=== PATIENT | male | born 1960 | race Caucasian/White ===

== ENCOUNTER → 2022-05-27 08:00 | Outpatient (CLI) | payer OTHER, SELFPAY ==
--- NOTE | 2022-05-27 | DI.RAD.S_ITS ---
PROCEDURE: FL UPPER GI SERIES INDICATIONS: Gastro-esophageal reflux disease w/o esophagitis COMPARISON: [facility], CR, CHEST 2 VIEW, 07/24/2013, 15:13. FINDINGS: KUB: Preprocedural medical coding specialist film demonstrates a normal bowel gas pattern. No suspicious abdominal calcifications. Visualized solid organ contours appear normal. Bony structures appear unremarkable. Esophagus: Esophageal mucosa is normal on air-contrast views. On single-contrast views, there is normal esophageal peristalsis. No strictures, extrinsic mass effects, or diverticula. No hiatal hernia or elicited gastroesophageal reflux. There is normal transit of a calibrated barium tablet through the esophagus. Stomach: The stomach is normally distensible, with normal rugal fold thickness. No mucosal masses or ulcers. Pylorus and duodenal bulb appear normal in morphology. Duodenal folds are normal in thickness as well. IMPRESSION: No gastroesophageal reflux demonstrated with provocative maneuvers. No stricture or hiatal hernia. Dictated by: Fredi Adair M.D. on 05/27/2022 at 9:45 Approved by: Fredi Adair M.D. on 05/27/2022 at 9:46
== END ==
PROVIDERS: PCP Family Medicine; Referring Provider Family Medicine; Visit Provider Family Medicine
DX: K21.9 Gastro-esophageal reflux disease without esophagitis (principal)
CPT/HCPCS: 74240

== ENCOUNTER 2022-06-24 07:22 | Day surgery (SDC) | payer OTHER, SELFPAY ==
[2022-06-24] VITALS (7 sets, daily range): BP systolic 107–137; BP diastolic 45–86; PULSE 48–63; RESP 10–20; TEMP 36.5–37.1; O2SAT 94–98; BMI 34.0
--- NOTE | 2022-06-24 | PATH_ITS ---
[facility] Accession Number: [id number] No. of containers..06 Tissue . 01 Material submitted: . PART A: gastrointestinal site - GASTRIC BODY BIOPSY PART B: duodenum - DUODENUM BIOPSY PART C: pylorus - PYLORUS PART D: esophagus, E-G Junction - GE JUNCTION BIOPSY PART E: colon - DESCENDING COLON POLYP PART F: rectum - RECTAL POLYP . 01 Clinical history: . C: R/O H. PYLORI . 01 Diagnosis: A. Gastric Body, Biopsy: Gastric body mucosa with no diagnostic abnormality. No evidence of Helicobacter organisms on H/E stain. Negative for intestinal metaplasia. Negative for dysplasia or malignancy. . B. Duodenum, Biopsy: Small bowel mucosa with no diagnostic abnormality. Negative for active inflammation, features of sprue, dysplasia, or malignancy. . C. Gastric Pylorus, Biopsy: Gastric antral mucosa with no diagnostic abnormality. No evidence of Helicobacter organisms on H/E stain. Negative for intestinal metaplasia. Negative for dysplasia or malignancy. . D. Gastroesophageal Junction, Biopsy: Squamous mucosa with mild reactive features of reflux esophagitis. No glandular mucosa present for evaluation. Intraepithelial eosinophils are not increased. Negative for dysplasia or malignancy. . E. Descending Colon Polyp: Colonic mucosa with focal mucosal hyperplasia. Negative for dysplasia or malignancy. . F. Rectal Polyp: Hyperplastic polyp. [facility] 06/29/2022 1822 Local . 01 Electronically signed: . Vaughn Beckford MD, PhD, Pathologist NPI- [id number] . 01 Gross description: . Part A: GASTRIC BODY BIOPSY: Received in formalin are 2 fragment(s) of petty, soft tissue measuring 0.3 x 0.1 x 0.1 cm to 0.2 x 0.1 x 0.1 cm submitted entirely in 1 cassette(s) Part B: DUODENUM BIOPSY: Received in formalin is 1 fragment(s) of petty, soft tissue measuring 0.2 x 0.2 x 0.1 cm submitted entirely in 1 cassette(s) Part C: PYLORUS: Received in formalin are 2 fragment(s) of petty, soft tissue measuring 0.2 x 0.2 x 0.1 cm to 0.2 x 0.2 x 0.1 cm submitted entirely in 1 cassette(s) Part D: GE JUNCTION BIOPSY: Received in formalin is 1 fragment(s) of petty, soft tissue measuring 0.3 x 0.2 x 0.2 cm submitted entirely in 1 cassette(s) Part E: DESCENDING COLON POLYP: Received in formalin are 2 fragment(s) of petty, soft tissue measuring 0.3 x 0.2 x 0.1 cm to 0.2 x 0.2 x 0.1 cm submitted entirely in 1 cassette(s) Part F: RECTAL POLYP: Received in formalin is 1 fragment(s) of petty, soft tissue measuring 0.2 x 0.1 x 0.1 cm submitted entirely in 1 cassette(s) /CPE 06/25/2022 1120 Local . 01 Pathologist provided ICD-10: R10.13, K21.9, K63.5, K62.1 . 01 CPT . 676301, 204473, 372682, 482555, 589948, 111394 Specimen Comment: A courtesy copy of this report has been sent to [facility] Pathology Performed at: 01 [facility] [address] [place] [address] [address] [facility], [place], [place] [id number] MD Ashok John MD Phone: [phone]
[2022-06-24] MEDS: LACTATED RINGERS 1,000 ML 150 ML IV (08:06)
--- NOTE | 2022-06-24 08:31 | PM.PREOP ---
Pre-operative Note Interval Note History & Physical reviewed/Exam performed by Physician: Yes Changes to H&P: No
--- NOTE | 2022-06-24 09:57 | PM.OP.EC ---
Procedure & Clinicians Study performed: 1. EGD and biopsies 2. Colonoscopy and biopsies Same procedure as scheduled: Yes Indications: GERD like symptoms and epigastric pain, screening for colon cancer average risk Surgeon: Liz Galvan Procedure Notes Procedure in detail: Patient was taken to the endoscopy suite and placed in a left lateral decubitus position. A time-out was performed. With the help of anesthesiologist conscious sedation was induced. The procedure commenced with the EGD scope which was placed into the mouth over the tongue and into the esophagus. This was advanced down the esophagus and into the stomach. There did appear to be some gastritis in the body of the stomach as well as around the pylorus. The pylorus was intubated and the duodenum was entered. The duodenum appeared to have some inflammatory changes as well. Photographs were obtained of the stomach pylorus and duodenum. A biopsy was taken of the duodenum. The scope was then withdrawn and a biopsy was obtained of the pylorus, a biopsy of the gastric body. The scope was retroflexed and no hiatal hernia was appreciated a photograph was taken. The scope was then withdrawn into the esophagus and the GE junction was inspected a photograph was obtained. There was a tongue of tissue that protruded above the GE junction that was about 1-1/2 cm in length but not circumferential. This was biopsied. The scope was then withdrawn fully patient tolerated the procedure well we switched the colonoscopy scope Digital rectal exam was performed and there were no masses or strictures the colonoscope was introduced into the anal canal and advanced through to the cecum. A photograph of the appendiceal orifice was obtained. Scope was then withdrawn slowly for 15 minutes. During the withdrawal 1 descending colon polyp that was very small was seen and biopsied with the forceps. A very small rectal polyp was also seen and biopsied with forceps. Each of these polyps was removed fully. Scope was then retroflexed and a photograph obtained of the hemorrhoidal piles which appeared normal. There were few scattered diverticula in the sigmoid colon. The patient tolerated the procedure well and went in good condition to the postoperative care unit. Findings: Flowers's esophagus (Possible: Follow up biopsies), gastritis (Will recommend starting Protonix daily) and polyp (Colon polyps x2) Specimen(s): other (1. Gastric body biopsy 2. Duodenal biopsy 3. Pyloric biopsy rule out H pylori 4. GE junction biopsy 5. Descending colon polyp 6. Rectal polyp) Post-procedure Plan for aftercare: Colonoscopy in 5-10 years depending on pathology results. Start Protonix daily. Recommend a fiber supplement: Powder form once or twice daily with large glass of water.
== END 2022-06-24 10:15 | disposition home or self-care (01) ==
PROVIDERS: PCP Family Medicine; Referring Provider Surgery; Visit Provider Surgery
PROC: 0DJ08ZZ Inspection of Upper Intestinal Tract, Via Natural or Artificial Opening Endoscopic (ICD-10-PCS; CPT 43235; principal; 2022-06-24 08:30)
PROC: 0DJD8ZZ Inspection of Lower Intestinal Tract, Via Natural or Artificial Opening Endoscopic (ICD-10-PCS; CPT 45378; 2022-06-24 08:30)
DX: Z12.11 Encounter for screening for malignant neoplasm of colon (principal); K21.00 Gastro-esophageal reflux disease with esophagitis, without bleeding; K22.70 Barrett's esophagus without dysplasia; K29.70 Gastritis, unspecified, without bleeding; K57.30 Diverticulosis of large intestine without perforation or abscess without bleeding; K62.1 Rectal polyp
CPT/HCPCS: 45380; 43239; J2250; J2704; J3010

== ENCOUNTER → 2022-06-30 08:11 | Outpatient (CLI) | payer OTHER, SELFPAY ==
--- NOTE | 2022-07-01 02:24 | DI.NM.S_ITS ---
DATE OF SERVICE: 06/30/2032 PROCEDURE PERFORMED: Exercise treadmill stress and rest myocardial perfusion imaging with gating to assess ejection fraction and regional wall motion. ORDERING PROVIDER: Alma Pink MD INDICATIONS: The patient is a 62-year-old male with atypical chest discomfort. CARDIAC STRESS: The patient was able to exercise for 10 minutes, 13 seconds on a standard Suhas protocol suggesting good exercise capacity with an MARY of -19%, achieving 11 METs. He had a normal heart rate response to exercise, achieving a maximum heart rate of 150 BPM (94% of his predicted maximum). He had a borderline hypertensive blood pressure response with a resting blood pressure of 110/80, increasing to a maximum of 200/90. His resting ECG shows sinus bradycardia at 47 BPM without ectopy, but early in exercise he develops ventricular bigeminy. Resting ST segments are normal and remained normal throughout stress. His ventricular ectopy improved with progressive stress, essentially resolving at peak exercise with the exception of rare isolated PVCs. In recovery, he develops occasional PACs, but no complex ectopy. At 8 minutes 24 seconds of exercise at a heart rate of 138 bpm, 26.3 millicuries of technetium-99m Myoview was injected and he was imaged 10 minutes later using a gated SPECT acquisition protocol. Earlier in the day, he had been injected with 11.6 millicuries of technetium-99m Myoview and was imaged 15 minutes later using a gated SPECT acquisition protocol. FINDINGS: 1. Raw data: There is fair myocardial tracer uptake without significant motion. Lung/heart ratio is normal at 0.38 with a normal TID ratio of 0.94. 2. Quantitated gated SPECT: Post-stress ejection fraction is estimated at 72% without any focal wall motion abnormality and specifically the mid and distal anterior wall appears to have normal contractility. The resting ejection fraction is estimated at 67% although the image quality is fairly poor. Resting end-diastolic volume is borderline elevated at 131 mL, but again image quality is fairly poor, reducing the specificity of this finding. 3. Myocardial perfusion imaging: Post-stress supine images shows a fairly normal myocardial perfusion pattern with the exception of a mild perfusion defect in the mid anterior wall that does not include the apex. This would be consistent with chest wall attenuation, supported by its complete resolution on the prone images which reveal a normal, homogeneous perfusion pattern. The resting ECG show an identical perfusion pattern without any areas of improvement. IMPRESSION: 1. Probable normal myocardial perfusion study. 2. Mild, fixed mid anterior wall defect that resolves on prone imaging, most consistent with chest wall attenuation although a small nontransmural infarction cannot be entirely excluded, yet the absence of any wall motion abnormality mitigates against this. There is no evidence for any myocardial ischemia. 3. Normal left ventricular systolic function without any focal wall motion abnormality. Left ventricular volumes may be mildly increased, although specificity is reduced because of marginal image quality. 4. Good exercise capacity without angina or ECG evidence of ischemia. He had sinus bradycardia at rest with ventricular bigeminy in the early stages of exercise that resolved with progressive stress but no complex arrhythmias. He had a borderline hypertensive blood pressure response to exercise. Major Emmanuel - DEBRA/lucy/redd doc#: [id number]/job#: [id number] dd: 06/30/2022 16:48:00 dt: 07/01/2022 02:11:00 DICTATING MD/COPIES TO: Lino Lugo MD; Alma Pink MD COPIES MNE: FELTON;
== END ==
PROVIDERS: PCP Family Medicine; Referring Provider Family Medicine; Visit Provider Family Medicine
DX: R07.89 Other chest pain (principal)
CPT/HCPCS: 78452; 93017; A9502

== ENCOUNTER → 2024-08-05 09:40 | Outpatient (CLI) | payer OTHER, SELFPAY ==
--- NOTE | 2024-08-05 09:46 | DI.RAD.S_ITS ---
PROCEDURE: XR ANKLE LT MIN 3V INDICATIONS: CHONIC ANKLE PAIN TECHNIQUE: 3 views of the ankle were acquired. COMPARISON: None. FINDINGS: Bones: No fractures or dislocations. Ankle mortise is normally aligned. No suspicious bony lesions. Soft tissues: No tibiotalar joint effusion. Achilles tendon appears normal. IMPRESSION: No acute bony abnormality or significant effusion. Approved by: Ryan Beckett M.D. on 08/05/2024 at 17:16
--- NOTE | 2024-08-05 09:46 | DI.RAD.S_ITS ---
PROCEDURE: XR KNEE LT 3V INDICATIONS: CHRONIC KNEE PAIN TECHNIQUE: 3 views of the knee were acquired. COMPARISON: None. FINDINGS: Bones: No fractures or dislocations. No suspicious bony lesions. Soft tissues: No joint effusion. No suspicious soft tissue calcifications. IMPRESSION: No acute bony abnormality or significant effusion. Approved by: Ryan Beckett M.D. on 08/05/2024 at 19:48
== END ==
PROVIDERS: PCP Family Medicine; Referring Provider Family Medicine; Visit Provider Family Medicine
DX: M25.572 Pain in left ankle and joints of left foot (principal); G89.29 Other chronic pain; M25.562 Pain in left knee
CPT/HCPCS: 73562; 73610